=== PATIENT | male | born 1995 | race Caucasian/White ===

== ENCOUNTER 2018-10-16 10:40 | Emergency (ER) | payer MEDICAID, OTHER ==
[~2018-10-16] VITALS: Ht 177.8 cm; Wt 117.1 kg
[~2018-10-16 10:40] MED LIST: NAPR-985 PO
[2018-10-16 10:45] VITALS: Ht 177.8 cm; Wt 117.1 kg
[2018-10-16] MEDS ORDERED: IBUPROFEN 800 MG TAB PO ONE (11:30)
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
[2018-10-16 12:17] VITALS: BP 132/70; PULSE 71; RESP 20
== END 2018-10-16 12:19 | disposition home or self-care (01) ==
LOC: FTE 10:40
DX: M25.531 Pain in right wrist (principal); R07.9 Chest pain, unspecified
CPT/HCPCS: 71046; 73110; Z7502; Z7610